=== PATIENT | female | born 1995 | race Hispanic/Latino ===

== ENCOUNTER 2021-04-18 09:51 | Inpatient (IN) | payer MEDICAID, OTHER, SELFPAY ==
[~2021-04-18 09:51] MED LIST: Bupivacaine 0.25% HCL 30 ML VIAL ONE; Terbutaline Sulfate 1 MG/ML VIAL ONE
[2021-04-18] MEDS ORDERED: hydrALAZINE 20 MG/ML VIAL SLOW IVP PRN ×2 (10:40→12:26)
[2021-04-18 11:39] LABS: Creatinine, Urine 100.96 mg/dL (47-110)
[2021-04-18 11:45] LABS: #Monocytes 0.8 10x3/uL (0.0-1.1); #Neutrophils 9.4 10x3/uL (1.5-8.4); %Basophils 0.3 % (0.0-2.0); %Eosinophils 0.2 % (0.0-6.0); %Lymphocytes 17.1 % (18.0-47.0); %Monocytes 6.3 % (0.0-10.0); %Neutrophils 75.5 % (40.0-75.0); Hemoglobin 12.6 g/dL (12.0-15.5); Mean Corpuscular HGB CONC 34.5 g/dL (32.0-36.0); Mean Corpuscular Hemoglobin 30.1 pg (27.0-33.0); Mean Corpuscular Volume 87.1 fl (81.6-98.3); Mean Platelet Volume 11.9 fl (7.4-10.4); Platelet Count 175 10x3/uL (150-450); RBC Distribution Width 14.3 % (11.5-14.5); Red Blood Cell (RBC) Count 4.19 10x6/uL (3.90-5.03); White Blood Cell (WBC) Count 12.5 10x3/uL (3.5-10.5)
[2021-04-18 12:19] LABS: ALT (SGPT) 12 U/L (8-55); AST (SGOT) 18 U/L (5-34); Albumin 3.5 g/dL (3.5-5.0); Alkaline Phosphatase 150 U/L (40-110); Anion Gap 14 mmol/L (10-20); BUN (Urea Nitrogen) 7 mg/dL (7.0-18.7); Bilirubin, Total 0.3 mg/dL (0.2-1.2); Calc. Creatinine Clearance 0 mL/min (70-130); Calcium 9.4 mg/dL (7.8-10.44); Carbon Dioxide 19 mmol/L (22-29); Chloride 105 mmol/L (98-107); Globulin 3.7 g/dL (2.4-3.5); Glucose 76 mg/dL (70-105); Potassium 3.8 mmol/L (3.5-5.1); Protein, Total 7.2 g/dL (6.0-8.3); Sodium 134 mmol/L (136-145)
[2021-04-18] MEDS ORDERED: Butorphanol Tartrate 1 MG/ML VIAL SLOW IVP PRN (12:26)
[2021-04-18] MEDS ORDERED: Misoprostol 200 MCG TAB PR PRN (12:26)
[2021-04-18] MEDS ORDERED: Promethazine HCl 25 MG/ML VIAL IM PRN ×2 (12:26→21:53)
[2021-04-18] MEDS ORDERED: Methylergonovine 0.2 MG/ML VIAL IM PRN (12:26)
[2021-04-18] MEDS ORDERED: Carboprost 250 MCG/ML AMP IM PRN (12:26)
[2021-04-18] MEDS ORDERED: Ondansetron PF 4 MG/2 ML Vial IVP PRN ×2 (12:26→21:53)
[2021-04-18] MEDS ORDERED: Diphenoxylate HCl/Atropine Tablet PO PRN (12:26)
[2021-04-18] MEDS ORDERED: Lidocaine 1% (PF) 30 ML VIAL SC PRN (12:26)
[2021-04-18 13:24] LABS: Hemoglobin 13.2 g/dL (12.0-15.5); Mean Corpuscular HGB CONC 34.6 g/dL (32.0-36.0); Mean Corpuscular Hemoglobin 30.3 pg (27.0-33.0); Mean Corpuscular Volume 87.8 fl (81.6-98.3); Mean Platelet Volume 11.8 fl (7.4-10.4); Platelet Count 195 10x3/uL (150-450); RBC Distribution Width 14.2 % (11.5-14.5); Red Blood Cell (RBC) Count 4.35 10x6/uL (3.90-5.03); White Blood Cell (WBC) Count 14.6 10x3/uL (3.5-10.5)
[2021-04-18] MEDS ORDERED: Misoprostol 100 MCG TAB ONE (13:48)
[2021-04-18 13:51] LABS: Lavender RECEIVED; Red RECEIVED
[2021-04-18 14:02] LABS: Syphilis Antibody Nonreactive (Nonreactive); Syphilis Antibody Index 0.06 S/CO (<1.00 Non-Reactive)
[2021-04-18] MEDS ORDERED: Misoprostol 100 MCG TAB VAG SCH (14:30)
[2021-04-18] MEDS: Lactated Ringer's 1,000 ML IV SCH ×2 (14:30→21:22)
[2021-04-18 15:59] VITALS: BMI 36.9
[2021-04-18] MEDS: NS w/ Oxytocin 30 units 500 ML IV SCH (18:22)
[2021-04-18 18:46] LABS: SARS-CoV-2 NAA Rapid Test Not Detected (NotDetected)
[2021-04-18] MEDS ORDERED: Fentanyl 2 mcg/Bup 0.1% Cadd 100 ML ONE (21:34)
[2021-04-18] MEDS ORDERED: Acetaminophen 325 MG TAB PO PRN (21:53)
[2021-04-18] MEDS ORDERED: Hydrocerin (Eucerin) Cream 120 gm Jar TOP PRN (21:53)
[2021-04-18] MEDS ORDERED: diphenhydrAMINE 50 MG/ML VIAL IVP PRN (21:53)
[2021-04-18] MEDS ORDERED: Lactated Ringer's 500 ML IV PRN (21:53)
[2021-04-18] MEDS ORDERED: ePHEDrine Sulfate 50 MG/10 ML VIAL SLOW IVP PRN (21:53)
[2021-04-18] MEDS ORDERED: Naloxone HCl 0.4 mg/ml Vial IVP PRN ×2 (21:53)
[2021-04-18] MEDS ORDERED: Fentanyl 2 mcg/Bupivacaine 0.1% Cassette 100 ML EPIDURAL SCH (22:00)
[2021-04-18] MEDS ORDERED: Communication Order-Pharmacy FS SCH (22:00)
[2021-04-19] MEDS: Lactated Ringer's 1,000 ML IV SCH ×2 (02:09→15:38)
[2021-04-19] MEDS: NS w/ Oxytocin 30 units 500 ML IV SCH (07:26)
[2021-04-19 07:45] LABS: pH (Cord, venous) 7.295 (7.250-7.350)
[2021-04-19] MEDS ORDERED: Misoprostol 200 MCG TAB ONE (07:57)
[2021-04-19] MEDS ORDERED: Tranexamic Acid 1,000 MG/10 ML VIAL ONE (08:16)
[2021-04-19 08:46] LABS: Mean Corpuscular HGB CONC 34.8 g/dL (32.0-36.0); Mean Corpuscular Hemoglobin 30.5 pg (27.0-33.0); Mean Corpuscular Volume 87.5 fl (81.6-98.3); Mean Platelet Volume 11.9 fl (7.4-10.4); Platelet Count 129 10x3/uL (150-450); RBC Distribution Width 14.4 % (11.5-14.5); Red Blood Cell (RBC) Count 3.61 10x6/uL (3.90-5.03); White Blood Cell (WBC) Count 22.7 10x3/uL (3.5-10.5)
[2021-04-19 08:47] LABS: Platelet Count 129 10x3/uL (150-450)
[2021-04-19 09:16] LABS: PTT 26.8 sec (22.0-33.0); Prothrombin Time 11.1 sec (9.5-12.1)
[2021-04-19 09:21] LABS: Fibrinogen 273 mg/dL (220-504)
[2021-04-19] MEDS ORDERED: Diphenoxylate HCl/Atropine Tablet PO PRN (09:27)
[2021-04-19 09:30] LABS: D-Dimer Test Greater than 35.20 mg/L FEU (0.19-0.50)
[2021-04-19] MEDS ORDERED: HYDROcodone/Acetaminophen 5/325 mg Tablet PO PRN ×2 (10:12)
[2021-04-19] MEDS ORDERED: Boostrix 0.5 ML (Tdap) VIAL IM ONE (10:12)
[2021-04-19] MEDS ORDERED: Milk Of Magnesia 30 ML UDCUP PO PRN (10:12)
[2021-04-19] MEDS ORDERED: Bisacodyl 10 MG SUPP PR PRN (10:12)
[2021-04-19] MEDS ORDERED: Ondansetron PF 4 MG/2 ML Vial IVP PRN (10:12)
[2021-04-19] MEDS ORDERED: hydrALAZINE 20 MG/ML VIAL SLOW IVP PRN (10:12)
[2021-04-19] MEDS ORDERED: Benzocaine-Menthol 82.5 ML CAN TOP PRN (10:12)
[2021-04-19] MEDS ORDERED: Misoprostol 200 MCG TAB VAG PRN (10:12)
[2021-04-19] MEDS ORDERED: Diphenoxylate HCl/Atropine Tablet PO SCH (10:15)
[2021-04-19] MEDS ORDERED: Azithromycin 500 MG in Sodium Chloride 0.9% 250 ML 250 ML IVPB SCH (10:15)
[2021-04-19] MEDS: ceFAZolin 2 GM/Dextrose 50 ML 2 GM in Premix Bag 1 BAG IVPB SCH ×2 (13:50→22:53)
[2021-04-19] MEDS: Ibuprofen 800 MG TAB PO SCH ×2 (13:50→22:59)
[2021-04-19] MEDS: Ferrous Sulfate 325 MG TAB PO SCH (17:30)
[2021-04-19] MEDS: Docusate 100 MG CAP PO SCH (23:00)
[2021-04-20] MEDS: Lactated Ringer's 1,000 ML IV SCH ×2 (01:38→05:48)
[2021-04-20 04:50] LABS: Platelet Count 116 10x3/uL (150-450)
[2021-04-20 04:51] LABS: Hemoglobin 7.4 g/dL (12.0-15.5); Mean Corpuscular HGB CONC 34.3 g/dL (32.0-36.0); Mean Corpuscular Hemoglobin 30.5 pg (27.0-33.0); Mean Corpuscular Volume 88.9 fl (81.6-98.3); Mean Platelet Volume 11.7 fl (7.4-10.4); Red Blood Cell (RBC) Count 2.43 10x6/uL (3.90-5.03); White Blood Cell (WBC) Count 17.8 10x3/uL (3.5-10.5)
[2021-04-20] MEDS: ceFAZolin 2 GM/Dextrose 50 ML 2 GM in Premix Bag 1 BAG IVPB SCH (05:48)
[2021-04-20] MEDS: Ibuprofen 800 MG TAB PO SCH ×3 (05:53→21:56)
[2021-04-20] MEDS: Ferrous Sulfate 325 MG TAB PO SCH ×2 (09:35→18:01)
[2021-04-20] MEDS: Docusate 100 MG CAP PO SCH ×2 (09:35→21:25)
[2021-04-20] MEDS: Prenatal Vitamin 1 TAB PO SCH (09:36)
[2021-04-20] MEDS: Tranexamic Acid 650 MG TAB PO SCH ×3 (09:36→21:57)
[2021-04-21] MEDS: Ibuprofen 800 MG TAB PO SCH ×2 (06:06→13:53)
[2021-04-21] MEDS: Lactated Ringer's 1,000 ML IV SCH (07:58)
[2021-04-21 08:02] VITALS: BP 128/77; TEMP 98.8
[2021-04-21] MEDS: Docusate 100 MG CAP PO SCH (09:09)
[2021-04-21] MEDS: Ferrous Sulfate 325 MG TAB PO SCH (09:09)
[2021-04-21] MEDS: Tranexamic Acid 650 MG TAB PO SCH (09:16)
[2021-04-21] MEDS: Prenatal Vitamin 1 TAB PO SCH (09:16)
== END 2021-04-21 14:00 | disposition home or self-care (01) | DRG 768 ==
LOC: CSHLD/OP 09:51 → CSHLD 19:59 → CSHPED 04-19 15:33
PROVIDERS: ADMIT Obstetrics & Gynecology; ATTEND Obstetrics & Gynecology
PROC: 10E0XZZ Delivery of Products of Conception, External Approach (ICD-10-PCS; principal; 2021-04-19)
PROC: 10H07YZ Insertion of Other Device into Products of Conception, Via Natural or Artificial Opening (ICD-10-PCS; 2021-04-19)
PROC: 0HQ9XZZ Repair Perineum Skin, External Approach (ICD-10-PCS; 2021-04-19)
PROC: 0W3R7ZZ Control Bleeding in Genitourinary Tract, Via Natural or Artificial Opening (ICD-10-PCS; 2021-04-19)
PROC: 30233N1 Transfusion of Nonautologous Red Blood Cells into Peripheral Vein, Percutaneous Approach (ICD-10-PCS; 2021-04-20)
DX: O14.94 Unspecified pre-eclampsia, complicating childbirth (principal); Z37.0 Single live birth; Z3A.38 38 weeks gestation of pregnancy; Z20.822 Contact with and (suspected) exposure to COVID-19; O76 Abnormality in fetal heart rate and rhythm complicating labor and delivery; O70.0 First degree perineal laceration during delivery; O69.81X0 Labor and delivery complicated by cord around neck, without compression, not applicable or unspecified; O72.1 Other immediate postpartum hemorrhage
CPT/HCPCS: 36415; 36430; 51702; 80053; 82570; 82805; 84156; 85025; 85027; 85049; 85300; 85362; 85379; 85384; 85610; 85730; 86780; 86850; 86900; 86901; 99285; J0456; J0690; J2405; J2590; J3105; J3490; J7050; J7120; P9016; S0020; U0002